=== PATIENT | male | born 1965 | race Caucasian/White ===

== ENCOUNTER → 2023-04-17 | Outpatient (CLI) | payer BC ==
[2023-04-17 16:18] LABS: BASOPHILS # (AUTO) 0.01 K/uL (0.00-0.20); BASOPHILS % (AUTO) 0.1 % (0.0-5.0); HEMATOCRIT 48.8 % (42-54); IMMATURE GRANULOCYTE ABSOLUTE 0.06 K/uL (0-1); LYMPHOCYTES # (AUTO) 2.4 K/uL (1.0-4.8); LYMPHOCYTES % (AUTO) 23.8 % (21.0-51.0); MEAN CORPUSCULAR HEMOGLOBIN 28.8 pg (27.0-33.0); MEAN CORPUSCULAR VOLUME 87.3 fL (79-99); MONOCYTES # (AUTO) 1.2 K/uL (0.1-1.0); MONOCYTES % (AUTO) 12.3 % (3.0-13.0); NEUTROPHILS # (AUTO) 6.3 K/uL (1.8-7.7); NEUTROPHILS % (AUTO) 63.2 % (40.0-77.0); PLATELET COUNT (AUTO) 289 K/uL (130-400); RED BLOOD CELL COUNT(AUTO) 5.59 MIL/uL (4.50-6.20)
[2023-04-17 16:53] LABS: HEMOGLOBIN A1C 6.4 % (4.0-6.0)
[2023-04-17 16:57] LABS: ALBUMIN 4.1 g/dL (3.5-5.0); BILIRUBIN,TOTAL 0.7 mg/dL (0.2-1.0); CREATININE 1.1 mg/dL (0.5-1.5); POTASSIUM 4.1 mmol/L (3.5-5.1); THYROID STIMULATING HORMONE 0.59 uIU/mL (0.36-3.74); TOTAL PROTEIN, SERUM 8.9 g/dL (6.0-8.3)
== END | disposition home or self-care (01) ==
LOC: LAB 15:20
PROVIDERS: ATTEND Student in an Organized Health Care Education/Training Program
DX: R42 Dizziness and giddiness (principal); R09.02 Hypoxemia
CPT/HCPCS: 36415; 80053; 80061; 83036; 84443; 85025

== ENCOUNTER → 2023-05-09 | Outpatient (CLI) | payer BC ==
[~2023-05-09] MED LIST: AMLO-257 PO; ATOR10TA69 PO; FINA1TAB13 PO; LEVO150C4 PO; OMEP40CA21 PO
[2023-05-09 10:50] LABS: ABG BASE EXCESS 1.1 mmol/L (-2.0-3.0); ABG HCO3 24.7 mmol/L (21.0-28.0); ABG OXYGEN SATURATION 93.6 % (95.0-99.0); ABG PCO2 36 mmHg (35-48); DEVICE COMMENT RR DAY PT; PO2, ARTERIAL BG 64.6 mmHg (83.0-108.0); VENT MODE, BG RA (ROOM AIR)
== END | disposition home or self-care (01) ==
LOC: LAB 10:10
PROVIDERS: ATTEND Internal Medicine Critical Care Medicine
DX: R09.02 Hypoxemia (principal)
CPT/HCPCS: 36600; 82803

== ENCOUNTER 2023-05-15 05:43 | Day surgery (SDC) | payer BC ==
[2023-05-13 08:56] LABS: BASOPHILS # (AUTO) 0.01 K/uL (0.00-0.20); BASOPHILS % (AUTO) 0.1 % (0.0-5.0); HEMATOCRIT 50.2 % (42-54); IMMATURE GRANULOCYTE ABSOLUTE 0.05 K/uL (0-1); LYMPHOCYTES # (AUTO) 1.8 K/uL (1.0-4.8); LYMPHOCYTES % (AUTO) 21.6 % (21.0-51.0); MEAN CORPUSCULAR HEMOGLOBIN 28.5 pg (27.0-33.0); MEAN CORPUSCULAR HGB CONC 33.1 g/dL (32.0-36.0); MEAN CORPUSCULAR VOLUME 86.3 fL (79-99); MONOCYTES % (AUTO) 11.6 % (3.0-13.0); NEUTROPHILS # (AUTO) 5.5 K/uL (1.8-7.7); NEUTROPHILS % (AUTO) 66.1 % (40.0-77.0); PLATELET COUNT (AUTO) 256 K/uL (130-400); RED BLOOD CELL COUNT(AUTO) 5.82 MIL/uL (4.50-6.20); RED CELL DISTRIBUTION WIDTH 12.6 % (11.0-15.5); WHITE BLOOD COUNT (AUTO) 8.3 K/uL (4.8-10.8)
[2023-05-13 09:11] LABS: INR 0.94 (0.85-1.15)
[2023-05-13 09:12] LABS: ALBUMIN 3.6 g/dL (3.5-5.0); BILIRUBIN,TOTAL 0.7 mg/dL (0.2-1.0); CREATININE 1.1 mg/dL (0.5-1.5); PARTIAL THROMBOPLASTIN TIME 32.8 SEC (26.3-35.5); POTASSIUM 4.1 mmol/L (3.5-5.1); TOTAL PROTEIN, SERUM 8.3 g/dL (6.0-8.3)
[2023-05-13 09:13] VITALS: BP 123/81; PULSE 89; RESP 17
[~2023-05-15] VITALS: Ht 177.8 cm; Wt 78.0 kg
[2023-05-15 06:30] VITALS: BP 139/91; PULSE 87; RESP 16
[2023-05-15] MEDS ORDERED: 0.9%NACL 1000ML 1,000 ML IV ONE (06:33)
[2023-05-15] MEDS ORDERED: LIDOCAINE HCL 2% VISCOUS 15 ML UDCUP ONE (07:29)
[2023-05-15] MEDS ORDERED: PROPOFOL 10 MG/ML 20ML VIAL IV ONE (07:37)
[2023-05-15 08:05] VITALS: BP 113/70; PULSE 90; RESP 8
== END 2023-05-15 09:45 | disposition home or self-care (01) ==
LOC: DAH 05:43
PROVIDERS: ATTEND Student in an Organized Health Care Education/Training Program
DX: R09.02 Hypoxemia (principal); I37.1 Nonrheumatic pulmonary valve insufficiency; R42 Dizziness and giddiness; I10 Essential (primary) hypertension; K21.9 Gastro-esophageal reflux disease without esophagitis; E03.9 Hypothyroidism, unspecified; E78.5 Hyperlipidemia, unspecified; J45.909 Unspecified asthma, uncomplicated; Z82.49 Family history of ischemic heart disease and other diseases of the circulatory system; Z72.89 Other problems related to lifestyle; Z79.899 Other long term (current) drug therapy; Z79.01 Long term (current) use of anticoagulants
CPT/HCPCS: 80053; 85025; 85610; 85730; 36415; 93306; 93312; 93005; A4663; J7030; J2704; A4215; A4222; A4221; A4216; A4223 ×2; 96374; J3490

== ENCOUNTER 2023-05-17 07:11 | Day surgery (SDC) | payer BC ==
[2023-05-17] VITALS (9 sets, daily range): BP systolic 114–147; BP diastolic 67–105; PULSE 72–97; RESP 16–20; O2SAT 91
[~2023-05-17] VITALS: Ht 177.8 cm; Wt 78.0 kg
[2023-05-17] MEDS ORDERED: 0.9%NACL 1000ML 1,000 ML IV ONE (10:00)
[2023-05-17] MEDS ORDERED: FENTANYL CITRATE PF 50 MCG/1 ML 2ML VIAL ONE (16:25)
[2023-05-17] MEDS ORDERED: LIDOCAINE HCL 400MG/20ML VIAL ONE (16:25)
[2023-05-17] MEDS ORDERED: MIDAZOLAM HCL 1 MG/ML 2ML VIAL ONE (16:26)
[2023-05-17] MEDS ORDERED: HEPARIN 10,000 UNIT/10ML (1,000 UNIT/ML) VIAL ONE (16:26)
[2023-05-17] MEDS ORDERED: VERAPAMIL HCL 2.5 MG/ML VIAL ONE (16:28)
[2023-05-17] MEDS ORDERED: IOHEXOL-350 50ML VIAL IV ONE (16:28)
[2023-05-17] MEDS ORDERED: IOHEXOL 350 MG/ML 100ML INFUS..BTL IV ONE (16:28)
[2023-05-17] MEDS ORDERED: GLUCAGON 1MG KIT 1 MG ML IM PRN (18:30)
[2023-05-17] MEDS ORDERED: DEXTROSE 50%-WATER 50 ML DISP.SYRIN IV PRN (18:30)
== END 2023-05-17 23:19 | disposition home or self-care (01) ==
LOC: DAH 07:11 → CLH 07:11 → UNDOADMOB 07:12 → 2DH 07:12 → CLH 23:19 → UNDODISOB 23:33
PROVIDERS: ATTEND Student in an Organized Health Care Education/Training Program
DX: R09.02 Hypoxemia (principal); I20.9 Angina pectoris, unspecified; I10 Essential (primary) hypertension; E78.5 Hyperlipidemia, unspecified; E03.9 Hypothyroidism, unspecified; J45.909 Unspecified asthma, uncomplicated; Z82.49 Family history of ischemic heart disease and other diseases of the circulatory system; Z72.89 Other problems related to lifestyle; Z79.899 Other long term (current) drug therapy; Z79.01 Long term (current) use of anticoagulants
CPT/HCPCS: 93460; 71045; C1894 ×2; C1769 ×3; J3010; J3490 ×2; J7030; J1644; J2250; Q9967; A4215; A4222; A4221; A4663; A4216; A4606; Q9965; A4223 ×2; 99156; 99157; G0378